=== PATIENT | male | born 1950 | race Caucasian/White ===

== ENCOUNTER 2025-09-06 14:11 | Day surgery (SDC) | payer MEDICARE, BC ==
[~2025-09-06] VITALS: Ht 170.2 cm; Wt 75.9 kg
[2025-09-06] VITALS (11 sets, daily range): BP systolic 109–156; BP diastolic 61–86; PULSE 56–65; RESP 12–16; TEMP 99; O2SAT 94–98
--- NOTE | 2025-09-06 14:39 | ELECTROCARDIOGRAPH REPORT ---
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 JUDSON Farrell Measurements Intervals [place] Rate: 58 P: 14 [place]: 185 QRS: -49 QRSD: 99 T: 15 QT: 418 QTc: 411 Interpretive Statements Sinus rhythm Left anterior fascicular block Electronically Signed On 09-08-2025 13:18:[address] JUDSON Farrell Please click the below link to view image of tracing.
[2025-09-06] MEDS ORDERED: LOSA50TA64 PO (14:48)
[2025-09-06] MEDS ORDERED: METO25TA6 PO (14:48)
[2025-09-06] MEDS ORDERED: CHOL100061 PO (14:48)
[2025-09-06] MEDS ORDERED: SAW/1TAB2 (14:48)
[2025-09-06] MEDS ORDERED: CYAN-34 PO (14:48)
[2025-09-06] MEDS ORDERED: PRIM50TA5 PO (14:48)
[2025-09-06 15:01] LABS: MEAN PLATELET VOLUME 8.9 FL (7.4-10.4); RED CELL DISTRIBUTION WIDTH 14.4 % (11.5-14.5)
[2025-09-06 15:11] LABS: CREATININE 0.78 MG/DL (0.60-1.10); TOTAL CARBON DIOXIDE 28.1 MMOL/L (24-32); eCRCL 78 ML/MIN; eGFR > 90 ML/MIN
[2025-09-06 15:13] LABS: APTT 25 SECONDS (22-32); INR 1.1 INR
[2025-09-06 15:17] LABS: CHOL/HDL RATIO 1.9 (0.00-4.99); LDL CHOLESTEROL 67 MG/DL (50-100)
[2025-09-06] MEDS ORDERED: heparin 1,000unit/ml 10ml vial 10 ML ONE (16:29)
[2025-09-06] MEDS ORDERED: LIDOcaine 1% (10mg/ml) 2ml vial ONE (16:29)
[2025-09-06] MEDS ORDERED: verapamil 2.5 mg/ml inj IV ONE (16:29)
[2025-09-06] MEDS ORDERED: nitroGLYCERIN 500mcg/5mL D5W 5 ML IV ONE (16:31)
[2025-09-06] MEDS ORDERED: fentaNYL/PF 50MCG/1 ML 2ML syringe ONE (17:39)
[2025-09-06] MEDS ORDERED: midazolam 1 mg/ML 2ml injection ONE (17:39)
[2025-09-06] MEDS ORDERED: epiNEPHrine 0.1mg/ml 10ml syringe ONE (18:13)
[2025-09-06] MEDS ORDERED: atropine 0.1mg/ml 10ml syringe ONE (18:13)
[2025-09-06] MEDS ORDERED: clopidogrel 300mg tablet ONE (18:28)
[2025-09-06] MEDS ORDERED: ondansetron/PF 4mg/2ml inj IV PRN (19:05)
[2025-09-06] MEDS ORDERED: HYDROcodone/acetaminophen 10/325mg tab PO PRN (19:10)
[2025-09-06] MEDS ORDERED: HYDROcodone/acetaminophen 5mg/325mg tablet PO PRN (19:10)
[2025-09-06] MEDS ORDERED: CLOP-32 PO (19:42)
[2025-09-06] MEDS ORDERED: ASPI-1265 PO (19:43)
[2025-09-06] MEDS ORDERED: ROSU20TA98 PO (19:47)
[2025-09-06] MEDS ORDERED: ACETYLCYSTEINE 200 MG/1 ML 4 ML ORAL SOLUTION PO SCH (20:00)
--- NOTE | 2025-09-15 14:43 | CARDIOLOGY REPORT ---
DATE OF SERVICE: 09/06/2025 DICTATING PHYSICIAN: Oskar Woodson MD CARDIAC CATHETERIZATION REPORT DATE OF STUDY: 09/06/2025 PROCEDURES: * Left heart catheterization. * Selective coronary angiography. * Left ventriculography. * Angioplasty of the left anterior descending coronary artery. * Stenting x1 of the left anterior descending coronary artery. * Conscious sedation monitoring time for 30 minutes. INDICATION: Unstable angina, ST elevation noted on the treadmill followed by ventricular tachycardia. PHYSICIAN: Oskar Woodson MD DESCRIPTION OF PROCEDURE: After informed consent was obtained, the patient was brought to the cardiac photo lab manager in a fasting state where the patient was prepped and draped in the usual sterile manner. After adequate anesthesia was obtained using 1% lidocaine to the right wrist, a 5-Frisian sheath was inserted into the right radial artery using a modified Seldinger technique. Thereafter, using a cocktail of heparin, verapamil and nitroglycerin, the cocktail was given via the sheath in the radial artery to prevent coronary vasospasm and for anticoagulation. Next, using an Ultimate-2 catheter, the catheter was advanced under fluoroscopy guidance into the ascending aorta. The catheter was then manipulated to engage the left coronary system and coronary angiography of the left system was obtained. Next, the catheter was disengaged and manipulated to engage the right coronary artery and selective coronary angiography of the right coronary artery was obtained. Thereafter, the catheter was disengaged from the right coronary artery and manipulated to advance into the left ventricle where left ventriculography in the [place] position was obtained. The catheter was then removed. Hemostasis was obtained using the radial band. HEMODYNAMICS: For the patient's hemodynamics, please refer to the event log. Left ventricular end-diastolic pressure is 8 mmHg. FINDINGS: * The left main coronary artery is a normal-caliber vessel with mild luminal irregularities. * The left anterior descending coronary artery is a medium caliber vessel with a 90% discrete proximal LAD stenosis. * The circumflex coronary artery is a large dominant vessel with mild luminal irregularities. * The right coronary artery is a small nondominant vessel with mild diffuse disease. * Left ventriculography revealed the presence of normal left ventricular function. * Left ventricular end-diastolic pressure is 8 mmHg. PERCUTANEOUS CORONARY INTERVENTION: Using an XB LAD 3.5 guiding catheter, the catheter was advanced and the left main coronary artery intubated. An 0.014 Choice PT wire was then carefully navigated across the lesion. This was predilated with a 2.5 x 8 tract balloon dilated to rated burst atmospheres. Next, using a 3.5 x 12 mm [place] stent, the stent was advanced across the proximal LAD stenosis where it was deployed to rated burst atmospheres. Followup angiography revealed very good angiographic results. IMPRESSION: * Angioplasty/stenting of a 90% discrete proximal left anterior descending stenosis with a 3.5 x 12 mm [place] stent with excellent angiographic results. The patient had Thrombolysis in Myocardial Infarction 3 flow both pre and post procedure. * Normal left ventricular function. Left ventricular end-diastolic pressure is 8 mmHg. Oskar Woodson MD TID: [id number] RECEIPT: [id number] [facility]/JOANN
== END 2025-09-06 22:00 | disposition home or self-care (01) ==
LOC: SSTAY O 14:11
PROVIDERS: ATTEND Student in an Organized Health Care Education/Training Program
DX: R94.39 Abnormal result of other cardiovascular function study (principal); I35.1 Nonrheumatic aortic (valve) insufficiency; I25.110 Atherosclerotic heart disease of native coronary artery with unstable angina pectoris; I71.9 Aortic aneurysm of unspecified site, without rupture; E55.9 Vitamin D deficiency, unspecified; I21.9 Acute myocardial infarction, unspecified; I47.20 Ventricular tachycardia, unspecified; I10 Essential (primary) hypertension; Z86.73 Personal history of transient ischemic attack (TIA), and cerebral infarction without residual deficits; Z88.8 Allergy status to other drugs, medicaments and biological substances; Z98.890 Other specified postprocedural states; Z79.899 Other long term (current) drug therapy
CPT/HCPCS: 36415; 80048; 80061; 85025; 85610; 85730; 93005; 93458; 99152; 99153; A6258; A6402; C1725; C1751; C1769; C1874; C1894; C9600; J1644; J2003; J2250; J3010; J3490; J7030; Q0163; Q9967; Z7610; J0169; J0461